=== PATIENT | female | born 1975 | race Caucasian/White ===

== ENCOUNTER 2020-09-25 17:45 | Emergency (ER) | payer SELFPAY ==
[2020-09-25] MEDS ORDERED: NALOXONE HCL 0.4 MG/ML VIAL ONE ×2 (17:50→17:58)
[2020-09-25] MEDS ORDERED: SODIUM CHLORIDE 0.9% 500 ML INFUS.BAG IV ONE ×2 (17:54→18:04)
[2020-09-25] MEDS ORDERED: methylPREDNISolone NA SUCC 125 MG/2 ML VIAL ONE (17:54)
[2020-09-25] MEDS ORDERED: MAGNESIUM 1GM/D5W - 1 GM/100 ML IVPB IVPB ONE ×2 (17:54→18:20)
[2020-09-25] MEDS ORDERED: methylPREDNISolone NA SUCC 125 MG/2 ML VIAL IVPUSH ONE (17:55)
[2020-09-25] MEDS ORDERED: NOREPINEPHRINE BITARTRATE 4 MG/4 ML ML IV ONE (18:02)
[2020-09-25] MEDS ORDERED: NALOXONE HCL 0.4 MG/ML VIAL IVPUSH ONE (18:05)
[2020-09-25] MEDS ORDERED: NOREPINEPHRINE NS PREMIX 8,000 MCG/500 ML BAG IVPB SCH (18:15)
[2020-09-25 18:23] VITALS: BMI 24.7
[2020-09-25] MEDS ORDERED: EPINEPHrine/PF 1 MG/1 ML (1:1,000) AMPULE IV ONE (18:30)
[2020-09-25] MEDS ORDERED: MAGNESIUM SULF 50% (8.12 MEQ/2 ML-1 GM VIAL) IVPB ONE (18:31)
[2020-09-25 18:34] LABS: BASO % 0.3 % (0-2.0); EOS % 1.9 % (0-4.5); HEMATOCRIT 36.7 % (32.4-45.2); HEMOGLOBIN 12.2 GM/dL (10.7-15.3); LYMPH % 32.5 % (8-40); MCH 32.5 pg (25.7-33.7); MCHC 33.4 g/dl (32.0-36.0); MEAN CELL VOLUME 97.5 fl (80-96); MEAN PLT VOLUME 8.2 fl (7.5-11.1); NEUT % 55.3 % (42.8-82.8); PLATELET COUNT 387 K/MM3 (134-434); RBC 3.76 M/mm3 (3.60-5.2); RDW 14.9 % (11.6-15.6); WHITE BLOOD COUNT 9.1 K/mm3 (4.0-10.0)
[2020-09-25 18:52] LABS: CHLORIDE 109 mmol/L (98-107); SODIUM 143 mmol/L (136-145)
[2020-09-25 18:54] LABS: CALCIUM 7.5 mg/dL (8.5-10.1)
[2020-09-25 18:55] LABS: ALBUMIN 2.6 g/dl (3.4-5.0); ANION GAP 9 MMOL/L (8-16); BLOOD UREA NITROGEN 11.6 mg/dL (7-18); CO2 24 mmol/L (21-32); GLUCOSE,RANDOM 105 mg/dL (74-106); MAGNESIUM 1.9 mg/dL (1.8-2.4)
[2020-09-25 18:58] LABS: CREATININE 0.7 mg/dL (0.55-1.3); PHOSPHOROUS 2.6 mg/dL (2.5-4.9); SGOT/AST 47 U/L (15-37); SGPT/ALT 26 U/L (13-61)
[2020-09-25 18:59] LABS: BILIRUBIN,TOTAL 0.4 mg/dL (0.2-1)
[2020-09-25 19:00] LABS: TOT PROT 4.8 g/dl (6.4-8.2)
[2020-09-25 19:01] LABS: ALK PHOS 63 U/L (45-117)
[2020-09-25] MEDS ORDERED: POTASSIUM CHLORIDE ORAL LIQUID 20 MEQ/15 ML PO ONE (19:11)
[2020-09-25] MEDS ORDERED: POTASSIUM CHLORIDE ORAL LIQUID 20 MEQ/15 ML ONE (19:22)
[2020-09-25 20:18] LABS: EPI CELLS 31 /uL (0-25.1); HYALINE CASTS 8 /uL (0-3.1); URINE APPEARANCE CLEAR; URINE BACTERIA 23 /uL (0-1359); URINE BILIRUBIN NEGATIVE (NEGATIVE); URINE COLOR YELLOW; URINE GLUCOSE (UA) TRACE (NEGATIVE); URINE KETONE TRACE (NEGATIVE); URINE LEUK ESTERASE NEGATIVE (NEGATIVE); URINE NITRITE NEGATIVE (NEGATIVE); URINE PROTEIN 1+ (NEGATIVE); URINE RBC 47 /uL (0-23.9); URINE UROBILINOGEN 0.2 mg/dL (0.2-1.0); URINE WBC 6 /uL (0-25.8)
[2020-09-25 20:40] LABS: URINE BARBITURATES NEGATIVE ng/ml (CUTOFF=200)
[2020-09-25 20:41] LABS: METHADONE, UR NEGATIVE ng/ml (CUTOFF=300); OPIATES, URI NEGATIVE ng/ml (CUTOFF=300); PHENCYCLIDINE,URINE NEGATIVE ng/ml (CUTOFF=25)
[2020-09-25 20:42] LABS: URINE AMPHETAMINES NEGATIVE ng/ml (CUTOFF=500)
[2020-09-25 20:50] LABS: COCAINE, UR POSITIVE ng/ml (CUTOFF=300); URINE BENZODIAZEPINES POSITIVE ng/ml (CUTOFF=200)
[2020-09-25] MEDS ORDERED: LORazepam 2 MG/ML SDV VIAL IVPUSH ONE (21:18)
[2020-09-25] MEDS ORDERED: LORazepam 2 MG/ML SDV VIAL ONE (21:21)
[2020-09-25] MEDS ORDERED: EPINEPHrine 1:1,000 1 MG/1 ML - 30ML VIAL (INJECTION) SQ ONE ×2 (22:05→22:59)
[2020-09-25] MEDS ORDERED: EPINEPHrine/PF 1 MG/1 ML (1:1,000) AMPULE ONE ×2 (22:09→23:04)
[2020-09-26 00:14] VITALS: TEMP 97.6
[2020-09-26] MEDS ORDERED: HEPARIN NA (PORCINE) 5,000 UNITS/ML 1ML VIAL IVPUSH PRN ×3 (00:17)
[2020-09-26] MEDS ORDERED: HEPARIN INFUSION - 25,000 UNITS/500 ML INFUS.BAG IVPB SCH (00:30)
[2020-09-26 01:02] LABS: INR 1.1 (0.83-1.09); PROTHROMBIN TIME (PATIENT) 13.3 SEC (9.7-13.0)
[2020-09-26 01:04] LABS: ACTIVATED PTT 21.9 SECONDS (25.2-36.5); CALCIUM 7.7 mg/dL (8.5-10.1)
[2020-09-26] MEDS ORDERED: HEPARIN INFUSION - 25,000 UNITS/500 ML INFUS.BAG IVPB ONE (01:04)
[2020-09-26] MEDS ORDERED: HEPARIN NA (PORCINE) 5,000 UNITS/ML 1ML VIAL ONE (01:04)
[2020-09-26 01:05] LABS: BLOOD UREA NITROGEN 11.5 mg/dL (7-18)
[2020-09-26 01:08] LABS: CREATININE 0.8 mg/dL (0.55-1.3)
[2020-09-26 01:43] VITALS: BP 153/85; PULSE 86
== END 2020-09-26 01:43 | disposition short-term general hospital (02) ==
LOC: JER 17:45
PROC: 3E033GC Introduction of Other Therapeutic Substance into Peripheral Vein, Percutaneous Approach (ICD-10-PCS; principal; 2020-09-25)
PROC: 3E033GC Introduction of Other Therapeutic Substance into Peripheral Vein, Percutaneous Approach (ICD-10-PCS; 2020-09-25)
PROC: 3E033GC Introduction of Other Therapeutic Substance into Peripheral Vein, Percutaneous Approach (ICD-10-PCS; 2020-09-25)
PROC: 3E033GC Introduction of Other Therapeutic Substance into Peripheral Vein, Percutaneous Approach (ICD-10-PCS; 2020-09-25)
PROC: 3E033GC Introduction of Other Therapeutic Substance into Peripheral Vein, Percutaneous Approach (ICD-10-PCS; 2020-09-25)
PROC: 3E033GC Introduction of Other Therapeutic Substance into Peripheral Vein, Percutaneous Approach (ICD-10-PCS; 2020-09-25)
PROC: 3E033GC Introduction of Other Therapeutic Substance into Peripheral Vein, Percutaneous Approach (ICD-10-PCS; 2020-09-25)
PROC: 3E033NZ Introduction of Analgesics, Hypnotics, Sedatives into Peripheral Vein, Percutaneous Approach (ICD-10-PCS; 2020-09-25)
PROC: 3E033GC Introduction of Other Therapeutic Substance into Peripheral Vein, Percutaneous Approach (ICD-10-PCS; 2020-09-25)
PROC: 3E033GC Introduction of Other Therapeutic Substance into Peripheral Vein, Percutaneous Approach (ICD-10-PCS; 2020-09-25)
PROC: 3E033GC Introduction of Other Therapeutic Substance into Peripheral Vein, Percutaneous Approach (ICD-10-PCS; 2020-09-25)
PROC: 3E033GC Introduction of Other Therapeutic Substance into Peripheral Vein, Percutaneous Approach (ICD-10-PCS; 2020-09-25)
DX: T78.2XXA Anaphylactic shock, unspecified, initial encounter (principal); F10.10 Alcohol abuse, uncomplicated; N28.0 Ischemia and infarction of kidney
CPT/HCPCS: 36415; 71045-TC-FY; 74177-TC; 80048; 80053; 80162; 80164; 80307; 81003; 82550; 82553; 82962; 83690; 83735; 84100; 84484; 84703; 85025; 85610; 85730; 87086; 93005; 93010; 99291; C9803; J1644; U0003; U0005

== ENCOUNTER 2021-07-20 18:37 | Inpatient (IN) | payer OTHER ==
[2021-07-20] MEDS ORDERED: LOPERAMIDE HCL 2 MG CAPSULE PO PRN (20:04)
[2021-07-20] MEDS ORDERED: MENTHOL/PHENOL 1 EACH UD MM PRN (20:04)
[2021-07-20] MEDS ORDERED: ACETAMINOPHEN 325 MG TABLET (FP) PO PRN (20:04)
[2021-07-20] MEDS ORDERED: ONDANSETRON *ODT* 4 MG TABLET SL PRN (20:04)
[2021-07-20] MEDS ORDERED: BISMUTH SUBSALICYLATE 524 MG/30 ML PO PRN (20:04)
[2021-07-20] MEDS ORDERED: MAGNESIUM CITRATE 300 ML BOTTLE PO PRN (20:04)
[2021-07-20] MEDS ORDERED: MAG HYDROX/AL HYDROX/SIMETH 30 ML UNIT-DOSE CUP PO PRN (20:04)
[2021-07-20] MEDS ORDERED: MAGNESIUM HYDROX 2400MG/30ML ORAL SUSPENSION 30 ML CUP PO PRN (20:04)
[2021-07-20] MEDS ORDERED: diazePAM 5 MG TABLET PO PRN (20:48)
[2021-07-21] MEDS ORDERED: ONDANSETRON *ODT* 4 MG TABLET ONE (00:59)
[2021-07-21 01:56] VITALS: BMI 21.7
[2021-07-21] MEDS ORDERED: METHOCARBAMOL 500 MG TABLET ONE (02:03)
[2021-07-21] MEDS ORDERED: diazePAM 5 MG TABLET ONE ×2 (02:03→11:14)
[2021-07-21] MEDS ORDERED: hydrOXYzine PAMOATE 25 MG CAPSULE (FP) PO ONE (02:04)
[2021-07-21] MEDS: MELATONIN 5 MG TABLETS PO PRN ×2 (02:05→22:24)
[2021-07-21] MEDS: METHOCARBAMOL 500 MG TABLET PO PRN ×3 (02:06→22:23)
[2021-07-21] MEDS: hydrOXYzine PAMOATE 25 MG CAPSULE (FP) PO PRN ×3 (02:06→17:21)
[2021-07-21] MEDS: THIAMINE HCL 100 MG TABLET (FP) PO SCH ×2 (06:50→22:23)
[2021-07-21] MEDS: PRENATAL VITAMINS W/ FOLIC ACID TABLET (FP) PO SCH (10:30)
[2021-07-21] MEDS: diazePAM 5 MG TABLET PO SCH ×3 (11:21→22:23)
[2021-07-21 14:37] LABS: HEMATOCRIT 41.2 % (32.4-45.2); HEMOGLOBIN 13.9 GM/dL (10.7-15.3); MCHC 33.7 g/dl (32.0-36.0); MEAN PLT VOLUME 7.9 fl (7.5-11.1); PLATELET COUNT 336 10^3/uL (134-434); RDW 13.9 % (11.6-15.6); WHITE BLOOD COUNT 7.1 K/mm3 (4.0-10.0)
[2021-07-21 14:47] LABS: ALBUMIN 3.6 g/dl (3.4-5.0); BLOOD UREA NITROGEN 20.2 mg/dL (7-18); CALCIUM 9.4 mg/dL (8.5-10.1)
[2021-07-21 14:51] LABS: CREATININE 0.7 mg/dL (0.55-1.3)
[2021-07-21 14:53] LABS: BILIRUBIN,TOTAL 0.3 mg/dL (0.2-1); TOT PROT 6.7 g/dl (6.4-8.2)
[2021-07-21] MEDS: IBUPROFEN 400 MG TABLET (FP) PO PRN (14:53)
[2021-07-21] MEDS: NICOTINE 10 MG CARTRIDGE (INHALER) IH PRN (15:18)
[2021-07-21] MEDS: traZODone HCL 50 MG TABLET (FP) PO SCH (22:23)
[2021-07-22] MEDS: diazePAM 5 MG TABLET PO SCH ×4 (06:42→22:08)
[2021-07-22] MEDS: METHOCARBAMOL 500 MG TABLET PO PRN ×2 (10:09→17:47)
[2021-07-22] MEDS: hydrOXYzine PAMOATE 25 MG CAPSULE (FP) PO PRN ×3 (10:09→22:11)
[2021-07-22] MEDS: ESCITALOPRAM OXALATE 10 MG TABLET PO SCH (10:09)
[2021-07-22] MEDS: PRENATAL VITAMINS W/ FOLIC ACID TABLET (FP) PO SCH (10:09)
[2021-07-22] MEDS: NICOTINE 10 MG CARTRIDGE (INHALER) IH PRN (10:54)
[2021-07-22] MEDS: diazePAM 5 MG TABLET PO PRN (13:46)
[2021-07-22] MEDS: THIAMINE HCL 100 MG TABLET (FP) PO SCH (22:08)
[2021-07-22] MEDS: traZODone HCL 50 MG TABLET (FP) PO SCH (22:08)
[2021-07-22] MEDS: ACETAMINOPHEN 325 MG TABLET (FP) PO PRN (22:09)
[2021-07-23] MEDS: diazePAM 5 MG TABLET PO SCH ×3 (05:44→22:09)
[2021-07-23] MEDS: PRENATAL VITAMINS W/ FOLIC ACID TABLET (FP) PO SCH (10:10)
[2021-07-23] MEDS: ESCITALOPRAM OXALATE 10 MG TABLET PO SCH (10:11)
[2021-07-23] MEDS: hydrOXYzine PAMOATE 25 MG CAPSULE (FP) PO PRN ×4 (10:11→22:09)
[2021-07-23] MEDS: METHOCARBAMOL 500 MG TABLET PO PRN (10:11)
[2021-07-23] MEDS: diazePAM 5 MG TABLET PO PRN ×2 (10:12→17:38)
[2021-07-23] MEDS: NICOTINE 10 MG CARTRIDGE (INHALER) IH PRN (13:37)
[2021-07-23] MEDS: MELATONIN 5 MG TABLETS PO PRN (22:08)
[2021-07-23] MEDS: traZODone HCL 50 MG TABLET (FP) PO SCH (22:09)
[2021-07-23] MEDS: THIAMINE HCL 100 MG TABLET (FP) PO SCH (22:09)
[2021-07-24 00:06] LABS: SARS-CoV-2 NAA Not Detected (Not Detected)
[2021-07-24] MEDS: diazePAM 5 MG TABLET PO SCH ×2 (05:40→17:54)
[2021-07-24] MEDS: IBUPROFEN 400 MG TABLET (FP) PO PRN (10:08)
[2021-07-24] MEDS: ESCITALOPRAM OXALATE 10 MG TABLET PO SCH (10:09)
[2021-07-24] MEDS: METHOCARBAMOL 500 MG TABLET PO PRN (10:09)
[2021-07-24] MEDS: hydrOXYzine PAMOATE 25 MG CAPSULE (FP) PO PRN ×3 (10:09→22:09)
[2021-07-24] MEDS: NICOTINE 10 MG CARTRIDGE (INHALER) IH PRN ×2 (10:10→17:56)
[2021-07-24] MEDS: PRENATAL VITAMINS W/ FOLIC ACID TABLET (FP) PO SCH (10:10)
[2021-07-24] MEDS ORDERED: diazePAM 5 MG TABLET PO ONE (12:23)
[2021-07-24] MEDS ORDERED: METHOCARBAMOL 750 MG TAB PO ONE (12:30)
[2021-07-24] MEDS: MELATONIN 5 MG TABLETS PO PRN (22:08)
[2021-07-24] MEDS: THIAMINE HCL 100 MG TABLET (FP) PO SCH (22:09)
[2021-07-24] MEDS: traZODone HCL 50 MG TABLET (FP) PO SCH (22:09)
[2021-07-25] MEDS ORDERED: diazePAM 5 MG TABLET PO ONE (06:00)
[2021-07-25] MEDS: PRENATAL VITAMINS W/ FOLIC ACID TABLET (FP) PO SCH (10:09)
[2021-07-25] MEDS: ESCITALOPRAM OXALATE 10 MG TABLET PO SCH (10:09)
[2021-07-25] MEDS: NICOTINE 10 MG CARTRIDGE (INHALER) IH PRN (10:10)
[2021-07-25] MEDS: ACETAMINOPHEN 325 MG TABLET (FP) PO PRN (11:06)
[2021-07-25] MEDS: hydrOXYzine PAMOATE 25 MG CAPSULE (FP) PO PRN (12:31)
[2021-07-25 13:39] VITALS: BP 125/74; PULSE 71; TEMP 97.3
== END 2021-07-25 15:01 | disposition home or self-care (01) | DRG 774 ==
LOC: YASAS 18:37 → Y6N 07-21 13:07
PROVIDERS: ADMIT Allergy & Immunology; ATTEND Allergy & Immunology
PROC: HZ2ZZZZ Detoxification Services for Substance Abuse Treatment (ICD-10-PCS; principal; 2021-07-21)
DX: F10.230 Alcohol dependence with withdrawal, uncomplicated (principal); F13.230 Sedative, hypnotic or anxiolytic dependence with withdrawal, uncomplicated; F14.20 Cocaine dependence, uncomplicated; F12.20 Cannabis dependence, uncomplicated; F17.210 Nicotine dependence, cigarettes, uncomplicated; F19.282 Other psychoactive substance dependence with psychoactive substance-induced sleep disorder; F19.280 Other psychoactive substance dependence with psychoactive substance-induced anxiety disorder; F19.24 Other psychoactive substance dependence with psychoactive substance-induced mood disorder; F31.81 Bipolar II disorder; F41.8 Other specified anxiety disorders; F32.A Depression, unspecified; Z88.0 Allergy status to penicillin; Z91.018 Allergy to other foods
CPT/HCPCS: 36415; 80053; 81025; 85027; 86780; C9803-CS; Q0162; U0003; U0005

== ENCOUNTER 2021-08-07 15:46 | Inpatient (IN) | payer OTHER ==
[2021-08-07 17:23] VITALS: BMI 22.6
[2021-08-07] MEDS ORDERED: LOPERAMIDE HCL 2 MG CAPSULE PO PRN (19:42)
[2021-08-07] MEDS ORDERED: DICYCLOMINE HCL 10 MG CAPSULE PO PRN (19:42)
[2021-08-07] MEDS ORDERED: MAG HYDROX/AL HYDROX/SIMETH 30 ML UNIT-DOSE CUP PO PRN (19:42)
[2021-08-07] MEDS ORDERED: BISMUTH SUBSALICYLATE 524 MG/30 ML PO PRN (19:42)
[2021-08-07] MEDS ORDERED: ACETAMINOPHEN 325 MG TABLET (FP) PO PRN (19:42)
[2021-08-07] MEDS ORDERED: MELATONIN 5 MG TABLETS PO PRN (19:42)
[2021-08-07] MEDS ORDERED: ONDANSETRON *ODT* 4 MG TABLET SL PRN (19:42)
[2021-08-07] MEDS ORDERED: MAGNESIUM CITRATE 300 ML BOTTLE PO PRN (19:42)
[2021-08-07] MEDS ORDERED: MENTHOL/PHENOL 1 EACH UD MM PRN (19:42)
[2021-08-07] MEDS ORDERED: MAGNESIUM HYDROX 2400MG/30ML ORAL SUSPENSION 30 ML CUP PO PRN (19:42)
[2021-08-07] MEDS ORDERED: chlordiazePOXIDE HCL 25 MG CAPSULE PO PRN (19:44)
[2021-08-08] MEDS: chlordiazePOXIDE HCL 25 MG CAPSULE PO SCH ×5 (01:36→22:07)
[2021-08-08] MEDS: THIAMINE HCL 100 MG TABLET (FP) PO SCH ×2 (01:36→22:07)
[2021-08-08] MEDS: METHOCARBAMOL 500 MG TABLET PO PRN ×2 (06:16→20:26)
[2021-08-08] MEDS: PRENATAL VITAMINS W/ FOLIC ACID TABLET (FP) PO SCH (10:39)
[2021-08-08] MEDS: ACETAMINOPHEN 325 MG TABLET (FP) PO PRN (10:41)
[2021-08-08] MEDS: LISINOPRIL 10 MG TABLET PO SCH ×2 (11:44→22:07)
[2021-08-08] MEDS: ESCITALOPRAM OXALATE 10 MG TABLET PO SCH (11:44)
[2021-08-08] MEDS: IBUPROFEN 400 MG TABLET (FP) PO PRN (17:42)
[2021-08-08] MEDS: traZODone HCL 50 MG TABLET (FP) PO SCH (22:07)
[2021-08-09] MEDS: chlordiazePOXIDE HCL 25 MG CAPSULE PO SCH ×4 (05:31→22:03)
[2021-08-09] MEDS: METHOCARBAMOL 500 MG TABLET PO PRN ×3 (05:33→18:13)
[2021-08-09] MEDS: PRENATAL VITAMINS W/ FOLIC ACID TABLET (FP) PO SCH (10:23)
[2021-08-09] MEDS: LISINOPRIL 10 MG TABLET PO SCH ×2 (10:23→22:04)
[2021-08-09] MEDS: ESCITALOPRAM OXALATE 10 MG TABLET PO SCH (10:23)
[2021-08-09] MEDS: ACETAMINOPHEN 325 MG TABLET (FP) PO PRN ×2 (10:27→22:05)
[2021-08-09] MEDS: NICOTINE 10 MG CARTRIDGE (INHALER) IH PRN (10:56)
[2021-08-09] MEDS: hydrOXYzine PAMOATE 25 MG CAPSULE (FP) PO PRN ×3 (15:22→22:03)
[2021-08-09] MEDS: traZODone HCL 50 MG TABLET (FP) PO SCH (22:03)
[2021-08-09] MEDS: THIAMINE HCL 100 MG TABLET (FP) PO SCH (22:03)
[2021-08-10] MEDS ORDERED: chlordiazePOXIDE HCL 10 MG CAPSULE PO PRN
[2021-08-10] MEDS: hydrOXYzine PAMOATE 25 MG CAPSULE (FP) PO PRN ×3 (05:29→22:08)
[2021-08-10] MEDS: METHOCARBAMOL 500 MG TABLET PO PRN ×2 (05:29→18:01)
[2021-08-10] MEDS: chlordiazePOXIDE HCL 10 MG CAPSULE PO SCH ×4 (05:29→22:09)
[2021-08-10] MEDS: ACETAMINOPHEN 325 MG TABLET (FP) PO PRN (10:05)
[2021-08-10] MEDS: ESCITALOPRAM OXALATE 10 MG TABLET PO SCH (10:05)
[2021-08-10] MEDS: PRENATAL VITAMINS W/ FOLIC ACID TABLET (FP) PO SCH (10:05)
[2021-08-10] MEDS: LISINOPRIL 10 MG TABLET PO SCH ×2 (10:07→22:08)
[2021-08-10] MEDS: NICOTINE 10 MG CARTRIDGE (INHALER) IH PRN (10:55)
[2021-08-10] MEDS ORDERED: ESCITALOPRAM OXALATE 10 MG TABLET PO ONE (12:12)
[2021-08-10] MEDS: THIAMINE HCL 100 MG TABLET (FP) PO SCH (22:08)
[2021-08-10] MEDS: traZODone HCL 50 MG TABLET (FP) PO SCH (22:08)
[2021-08-10] MEDS: MELATONIN 5 MG TABLETS PO SCH (22:08)
[2021-08-11] MEDS: METHOCARBAMOL 500 MG TABLET PO PRN ×2 (05:47→20:07)
[2021-08-11] MEDS: chlordiazePOXIDE HCL 10 MG CAPSULE PO SCH ×2 (05:47→17:40)
[2021-08-11] MEDS: IBUPROFEN 400 MG TABLET (FP) PO PRN (08:33)
[2021-08-11] MEDS: hydrOXYzine PAMOATE 25 MG CAPSULE (FP) PO PRN ×4 (08:33→22:15)
[2021-08-11] MEDS: LISINOPRIL 10 MG TABLET PO SCH ×3 (10:20→23:28)
[2021-08-11] MEDS: PRENATAL VITAMINS W/ FOLIC ACID TABLET (FP) PO SCH (10:20)
[2021-08-11] MEDS: ESCITALOPRAM OXALATE 10 MG TABLET PO SCH (10:21)
[2021-08-11] MEDS: NICOTINE 10 MG CARTRIDGE (INHALER) IH PRN (10:52)
[2021-08-11] MEDS ORDERED: METHOCARBAMOL 500 MG TABLET PO SCH (12:45)
[2021-08-11] MEDS ORDERED: METHOCARBAMOL 500 MG TABLET PO ONE (13:41)
[2021-08-11] MEDS: traZODone HCL 50 MG TABLET (FP) PO SCH (22:15)
[2021-08-11] MEDS: MELATONIN 5 MG TABLETS PO SCH (22:15)
[2021-08-11] MEDS: THIAMINE HCL 100 MG TABLET (FP) PO SCH (22:15)
[2021-08-12] MEDS ORDERED: chlordiazePOXIDE HCL 10 MG CAPSULE PO ONE (05:00)
[2021-08-12] MEDS: METHOCARBAMOL 500 MG TABLET PO PRN (06:14)
[2021-08-12 09:14] VITALS: BP 137/68; PULSE 68; TEMP 96.6
[2021-08-12] MEDS: ESCITALOPRAM OXALATE 10 MG TABLET PO SCH (10:11)
[2021-08-12] MEDS: LISINOPRIL 10 MG TABLET PO SCH (10:11)
[2021-08-12] MEDS: PRENATAL VITAMINS W/ FOLIC ACID TABLET (FP) PO SCH (10:12)
[2021-08-12 13:27] LABS: CALCIUM 8.6 mg/dL (8.5-10.1)
[2021-08-12 13:29] LABS: ALBUMIN 3.1 g/dl (3.4-5.0); BLOOD UREA NITROGEN 15.5 mg/dL (7-18)
[2021-08-12 13:31] LABS: CREATININE 0.7 mg/dL (0.55-1.3)
[2021-08-12 13:34] LABS: BASO % 0.4 % (0-2.0); BILIRUBIN,TOTAL 0.3 mg/dL (0.2-1); EOS % 2.5 % (0-4.5); HEMATOCRIT 39.8 % (32.4-45.2); MCH 32.6 pg (25.7-33.7); MCHC 32.7 g/dl (32.0-36.0); MEAN CELL VOLUME 99.7 fl (80-96); MEAN PLT VOLUME 8.4 fl (7.5-11.1); MONO % 10.8 % (3.8-10.2); NEUT % 54.3 % (42.8-82.8); PLATELET COUNT 303 10^3/uL (134-434); RBC 3.99 M/mm3 (3.60-5.2); RDW 13.7 % (11.6-15.6); WHITE BLOOD COUNT 6.2 K/mm3 (4.0-10.0)
== END 2021-08-12 10:52 | disposition home or self-care (01) | DRG 774 ==
LOC: YASAS 15:46 → Y6N 21:10
PROVIDERS: ADMIT Allergy & Immunology; ATTEND Allergy & Immunology
PROC: HZ2ZZZZ Detoxification Services for Substance Abuse Treatment (ICD-10-PCS; principal; 2021-08-07)
DX: F10.230 Alcohol dependence with withdrawal, uncomplicated (principal); F14.20 Cocaine dependence, uncomplicated; F12.20 Cannabis dependence, uncomplicated; F17.210 Nicotine dependence, cigarettes, uncomplicated; F31.81 Bipolar II disorder; F19.280 Other psychoactive substance dependence with psychoactive substance-induced anxiety disorder; F19.282 Other psychoactive substance dependence with psychoactive substance-induced sleep disorder; F19.24 Other psychoactive substance dependence with psychoactive substance-induced mood disorder; Z56.0 Unemployment, unspecified; Z88.0 Allergy status to penicillin
CPT/HCPCS: 36415; 73130-TC-RT-FY; 80048; 80053; 85025; 86780; 87811; C9803-CS; U0003; U0005

== ENCOUNTER 2021-12-05 15:45 | Inpatient (IN) | payer OTHER ==
[2021-12-05 17:33] VITALS: BMI 25.6
[2021-12-05] MEDS ORDERED: MAG HYDROX/AL HYDROX/SIMETH 30 ML UNIT-DOSE CUP PO PRN (17:47)
[2021-12-05] MEDS ORDERED: MAGNESIUM CITRATE 300 ML BOTTLE PO PRN (17:47)
[2021-12-05] MEDS ORDERED: LOPERAMIDE HCL 2 MG CAPSULE PO PRN (17:47)
[2021-12-05] MEDS ORDERED: chlordiazePOXIDE HCL 25 MG CAPSULE PO PRN (17:47)
[2021-12-05] MEDS ORDERED: IBUPROFEN 600 MG TABLET (FP) PO PRN (17:47)
[2021-12-05] MEDS ORDERED: ACETAMINOPHEN 325 MG TABLET (FP) PO PRN ×2 (17:47)
[2021-12-05] MEDS ORDERED: BISMUTH SUBSALICYLATE 524 MG/30 ML PO PRN (17:47)
[2021-12-05] MEDS ORDERED: DICYCLOMINE HCL 10 MG CAPSULE PO PRN (17:47)
[2021-12-05] MEDS ORDERED: IBUPROFEN 400 MG TABLET (FP) PO PRN (17:47)
[2021-12-05] MEDS ORDERED: BENZOCAINE/MENTHOL (CHLORASEPTIC ) LOZENGE MM PRN (17:47)
[2021-12-05] MEDS ORDERED: NICOTINE 10 MG CARTRIDGE (INHALER) IH PRN (17:47)
[2021-12-05] MEDS ORDERED: ONDANSETRON *ODT* 4 MG TABLET SL PRN (17:47)
[2021-12-05] MEDS ORDERED: MAGNESIUM HYDROX 2400MG/30ML ORAL SUSPENSION 30 ML CUP PO PRN (17:47)
[2021-12-05] MEDS ORDERED: chlordiazePOXIDE HCL 25 MG CAPSULE PO ONE (17:47)
[2021-12-05] MEDS: METHOCARBAMOL 500 MG TABLET PO PRN (19:35)
[2021-12-05] MEDS: hydrOXYzine PAMOATE 25 MG CAPSULE (FP) PO SCH ×2 (19:35→22:06)
[2021-12-05] MEDS: PRENATAL VITAMINS W/ FOLIC ACID TABLET (FP) PO SCH (19:42)
[2021-12-05] MEDS ORDERED: MELATONIN 5 MG TABLETS PO SCH (22:00)
[2021-12-05] MEDS: THIAMINE HCL 100 MG TABLET (FP) PO SCH (22:06)
[2021-12-05] MEDS: chlordiazePOXIDE HCL 25 MG CAPSULE PO SCH (22:06)
[2021-12-06] MEDS: hydrOXYzine PAMOATE 25 MG CAPSULE (FP) PO SCH ×5 (05:40→22:16)
[2021-12-06] MEDS: chlordiazePOXIDE HCL 25 MG CAPSULE PO SCH ×4 (05:40→22:15)
[2021-12-06] MEDS: METHOCARBAMOL 500 MG TABLET PO PRN (10:55)
[2021-12-06] MEDS: PRENATAL VITAMINS W/ FOLIC ACID TABLET (FP) PO SCH (10:55)
[2021-12-06 11:14] LABS: MCH 33.2 pg (25.7-33.7); MCHC 34.1 g/dl (32.0-36.0); MEAN CELL VOLUME 97.5 fl (80-96); MEAN PLT VOLUME 7.9 fl (7.5-11.1); PLATELET COUNT 288 10^3/uL (134-434); RBC 4.51 M/mm3 (3.60-5.2); RDW 13.5 % (11.6-15.6); WHITE BLOOD COUNT 5.8 K/mm3 (4.0-10.0)
[2021-12-06 11:23] LABS: CALCIUM 9.3 mg/dL (8.5-10.1)
[2021-12-06 11:24] LABS: ALBUMIN 3.7 g/dl (3.4-5.0); BLOOD UREA NITROGEN 14.8 mg/dL (7-18)
[2021-12-06 11:27] LABS: CREATININE 0.7 mg/dL (0.55-1.3)
[2021-12-06 11:29] LABS: BILIRUBIN,TOTAL 0.6 mg/dL (0.2-1)
[2021-12-06] MEDS: SERTRALINE HCL 50 MG TABLET (FP) PO SCH (15:56)
[2021-12-06] MEDS: THIAMINE HCL 100 MG TABLET (FP) PO SCH (22:14)
[2021-12-06] MEDS: GABAPENTIN 100 MG CAPSULE PO SCH (22:15)
[2021-12-06] MEDS: traZODone HCL 100 MG TABLET (FP) PO SCH (22:15)
[2021-12-07] MEDS: METHOCARBAMOL 500 MG TABLET PO PRN ×3 (05:13→18:43)
[2021-12-07] MEDS: GABAPENTIN 100 MG CAPSULE PO SCH ×3 (05:13→22:34)
[2021-12-07] MEDS: hydrOXYzine PAMOATE 25 MG CAPSULE (FP) PO SCH ×5 (05:13→22:34)
[2021-12-07] MEDS: chlordiazePOXIDE HCL 25 MG CAPSULE PO SCH ×4 (05:13→22:35)
[2021-12-07] MEDS: PRENATAL VITAMINS W/ FOLIC ACID TABLET (FP) PO SCH (09:59)
[2021-12-07] MEDS: SERTRALINE HCL 50 MG TABLET (FP) PO SCH (09:59)
[2021-12-07] MEDS: traZODone HCL 100 MG TABLET (FP) PO SCH (22:34)
[2021-12-07] MEDS: THIAMINE HCL 100 MG TABLET (FP) PO SCH (22:34)
[2021-12-08] MEDS ORDERED: chlordiazePOXIDE HCL 10 MG CAPSULE PO PRN
[2021-12-08] MEDS: chlordiazePOXIDE HCL 10 MG CAPSULE PO SCH ×2 (06:09→10:45)
[2021-12-08] MEDS: GABAPENTIN 100 MG CAPSULE PO SCH (06:09)
[2021-12-08] MEDS: hydrOXYzine PAMOATE 25 MG CAPSULE (FP) PO SCH ×2 (06:09→10:44)
[2021-12-08] MEDS: METHOCARBAMOL 500 MG TABLET PO PRN (06:12)
[2021-12-08] MEDS: PRENATAL VITAMINS W/ FOLIC ACID TABLET (FP) PO SCH (10:44)
[2021-12-08] MEDS: SERTRALINE HCL 50 MG TABLET (FP) PO SCH (10:46)
[2021-12-08 13:29] VITALS: BP 133/72; PULSE 82; RESP 18; TEMP 98.8
[2021-12-09] MEDS ORDERED: chlordiazePOXIDE HCL 10 MG CAPSULE PO SCH (05:00)
[2021-12-10] MEDS ORDERED: chlordiazePOXIDE HCL 10 MG CAPSULE PO ONE (05:00)
== END 2021-12-08 13:30 | disposition home or self-care (01) | DRG 774 ==
LOC: YASAS 15:45 → Y6N 18:17
PROVIDERS: ADMIT Allergy & Immunology; ATTEND Surgery
PROC: HZ2ZZZZ Detoxification Services for Substance Abuse Treatment (ICD-10-PCS; principal; 2021-12-05)
DX: F10.230 Alcohol dependence with withdrawal, uncomplicated (principal); F13.230 Sedative, hypnotic or anxiolytic dependence with withdrawal, uncomplicated; F14.20 Cocaine dependence, uncomplicated; F12.20 Cannabis dependence, uncomplicated; F17.210 Nicotine dependence, cigarettes, uncomplicated; F41.9 Anxiety disorder, unspecified; F32.A Depression, unspecified; F19.24 Other psychoactive substance dependence with psychoactive substance-induced mood disorder; F19.282 Other psychoactive substance dependence with psychoactive substance-induced sleep disorder; F19.280 Other psychoactive substance dependence with psychoactive substance-induced anxiety disorder; F31.89 Other bipolar disorder; Z88.0 Allergy status to penicillin; Z56.0 Unemployment, unspecified
CPT/HCPCS: 36415; 80053; 81025; 85027; 86780; C9803-CS; U0003; U0005

== ENCOUNTER 2022-04-10 13:04 | Inpatient (IN) | payer OTHER ==
[2022-04-10 14:18] VITALS: BMI 27.6
[2022-04-10] MEDS ORDERED: DICYCLOMINE HCL 10 MG CAPSULE PO PRN (16:21)
[2022-04-10] MEDS ORDERED: ACETAMINOPHEN 325 MG TABLET (FP) PO PRN ×2 (16:21)
[2022-04-10] MEDS ORDERED: POLYETHYLENE GLYCOL (HEALTHYLAX) 3350 17 GM PACKET PO PRN (16:21)
[2022-04-10] MEDS ORDERED: MAGNESIUM HYDROX 2400MG/30ML ORAL SUSPENSION 30 ML CUP PO PRN (16:21)
[2022-04-10] MEDS ORDERED: LOPERAMIDE HCL 2 MG CAPSULE PO PRN (16:21)
[2022-04-10] MEDS ORDERED: BENZOCAINE/MENTHOL (CHLORASEPTIC ) LOZENGE MM PRN (16:21)
[2022-04-10] MEDS ORDERED: ONDANSETRON *ODT* 4 MG TABLET SL PRN (16:21)
[2022-04-10] MEDS ORDERED: MAG HYDROX/AL HYDROX/SIMETH 30 ML UNIT-DOSE CUP PO PRN (16:21)
[2022-04-10] MEDS ORDERED: IBUPROFEN 400 MG TABLET (FP) PO PRN (16:21)
[2022-04-10] MEDS ORDERED: BISMUTH SUBSALICYLATE 524 MG/30 ML PO PRN (16:21)
[2022-04-10] MEDS ORDERED: NALOXONE HCL (KLOXXADO) 8 MG SPRAY NS PRN (16:21)
[2022-04-10] MEDS ORDERED: chlordiazePOXIDE HCL 25 MG CAPSULE PO PRN (16:29)
[2022-04-10] MEDS ORDERED: chlordiazePOXIDE HCL 25 MG CAPSULE ONE (17:18)
[2022-04-10] MEDS: chlordiazePOXIDE HCL 25 MG CAPSULE PO SCH ×2 (17:22→22:37)
[2022-04-10] MEDS: MELATONIN 5 MG TABLETS PO SCH (22:37)
[2022-04-10] MEDS: hydrOXYzine PAMOATE 25 MG CAPSULE (FP) PO PRN (22:37)
[2022-04-10] MEDS: METHOCARBAMOL 500 MG TABLET PO PRN (22:37)
[2022-04-10] MEDS: THIAMINE HCL 100 MG TABLET (FP) PO SCH (22:37)
[2022-04-11] MEDS: chlordiazePOXIDE HCL 25 MG CAPSULE PO SCH ×4 (05:30→22:21)
[2022-04-11] MEDS: METHOCARBAMOL 500 MG TABLET PO PRN ×3 (05:32→17:50)
[2022-04-11] MEDS: PRENATAL VITAMINS W/ FOLIC ACID TABLET (FP) PO SCH (10:11)
[2022-04-11] MEDS: NICOTINE 14 MG/24 HOURS TOPICAL PATCH TD SCH (10:11)
[2022-04-11] MEDS: NICOTINE 10 MG CARTRIDGE (INHALER) IH PRN (10:12)
[2022-04-11] MEDS: IBUPROFEN 600 MG TABLET (FP) PO PRN ×2 (12:42→21:06)
[2022-04-11] MEDS: hydrOXYzine PAMOATE 25 MG CAPSULE (FP) PO PRN ×2 (12:42→17:50)
[2022-04-11 15:07] LABS: ALBUMIN 3.4 g/dl (3.4-5.0); BLOOD UREA NITROGEN 13.7 mg/dL (7-18); CALCIUM 9.3 mg/dL (8.5-10.1)
[2022-04-11 15:11] LABS: CREATININE 0.6 mg/dL (0.55-1.3)
[2022-04-11 15:12] LABS: HEMATOCRIT 44.3 % (32.4-45.2); HEMOGLOBIN 14.5 GM/dL (10.7-15.3); MCH 32.9 pg (25.7-33.7); MCHC 32.7 g/dl (32.0-36.0); MEAN CELL VOLUME 100.5 fl (80-96); PLATELET COUNT 357 10^3/uL (134-434); RBC 4.41 M/mm3 (3.60-5.2); RDW 12.7 % (11.6-15.6); WHITE BLOOD COUNT 5.6 K/mm3 (4.0-10.0)
[2022-04-11 15:13] LABS: BILIRUBIN,TOTAL 0.5 mg/dL (0.2-1); TOT PROT 6.4 g/dl (6.4-8.2)
[2022-04-11] MEDS: MELATONIN 5 MG TABLETS PO SCH (22:20)
[2022-04-11] MEDS: THIAMINE HCL 100 MG TABLET (FP) PO SCH (22:21)
[2022-04-12] MEDS: METHOCARBAMOL 500 MG TABLET PO PRN ×3 (05:43→22:25)
[2022-04-12] MEDS: chlordiazePOXIDE HCL 25 MG CAPSULE PO SCH ×4 (05:45→22:24)
[2022-04-12] MEDS: PRENATAL VITAMINS W/ FOLIC ACID TABLET (FP) PO SCH (10:30)
[2022-04-12] MEDS: NICOTINE 14 MG/24 HOURS TOPICAL PATCH TD SCH (10:31)
[2022-04-12] MEDS: hydrOXYzine PAMOATE 25 MG CAPSULE (FP) PO PRN ×2 (18:01→22:25)
[2022-04-12] MEDS: MELATONIN 5 MG TABLETS PO SCH (22:24)
[2022-04-12] MEDS: THIAMINE HCL 100 MG TABLET (FP) PO SCH (22:24)
[2022-04-13] MEDS ORDERED: chlordiazePOXIDE HCL 10 MG CAPSULE PO PRN
[2022-04-13] MEDS: chlordiazePOXIDE HCL 10 MG CAPSULE PO SCH ×4 (06:17→22:28)
[2022-04-13] MEDS: METHOCARBAMOL 500 MG TABLET PO PRN ×3 (06:18→22:28)
[2022-04-13] MEDS: NICOTINE 14 MG/24 HOURS TOPICAL PATCH TD SCH (10:08)
[2022-04-13] MEDS: PRENATAL VITAMINS W/ FOLIC ACID TABLET (FP) PO SCH (10:08)
[2022-04-13] MEDS: hydrOXYzine PAMOATE 25 MG CAPSULE (FP) PO PRN (10:08)
[2022-04-13] MEDS: SERTRALINE HCL 25 MG TABLET (FP) PO SCH (10:09)
[2022-04-13] MEDS: IBUPROFEN 600 MG TABLET (FP) PO PRN (12:51)
[2022-04-13] MEDS: GABAPENTIN 100 MG CAPSULE PO SCH ×2 (13:08→22:28)
[2022-04-13] MEDS: traZODone HCL 100 MG TABLET (FP) PO SCH (22:28)
[2022-04-13] MEDS: THIAMINE HCL 100 MG TABLET (FP) PO SCH (22:28)
[2022-04-14] MEDS: GABAPENTIN 100 MG CAPSULE PO SCH ×3 (06:02→22:11)
[2022-04-14] MEDS: METHOCARBAMOL 500 MG TABLET PO PRN ×3 (06:02→23:04)
[2022-04-14] MEDS: chlordiazePOXIDE HCL 10 MG CAPSULE PO SCH ×2 (06:02→17:17)
[2022-04-14] MEDS: SERTRALINE HCL 25 MG TABLET (FP) PO SCH (10:51)
[2022-04-14] MEDS: PRENATAL VITAMINS W/ FOLIC ACID TABLET (FP) PO SCH (10:51)
[2022-04-14] MEDS: NICOTINE 14 MG/24 HOURS TOPICAL PATCH TD SCH (10:51)
[2022-04-14] MEDS: NICOTINE 10 MG CARTRIDGE (INHALER) IH PRN (10:51)
[2022-04-14] MEDS: hydrOXYzine PAMOATE 25 MG CAPSULE (FP) PO PRN ×2 (17:17→22:11)
[2022-04-14 19:26] VITALS: RESP 18
[2022-04-14] MEDS: traZODone HCL 100 MG TABLET (FP) PO SCH (22:11)
[2022-04-14] MEDS: THIAMINE HCL 100 MG TABLET (FP) PO SCH (22:11)
[2022-04-15] MEDS ORDERED: chlordiazePOXIDE HCL 10 MG CAPSULE PO ONE (05:00)
[2022-04-15] MEDS: GABAPENTIN 100 MG CAPSULE PO SCH (05:25)
[2022-04-15] MEDS: METHOCARBAMOL 500 MG TABLET PO PRN (05:26)
[2022-04-15] MEDS: PRENATAL VITAMINS W/ FOLIC ACID TABLET (FP) PO SCH (10:20)
[2022-04-15] MEDS: NICOTINE 14 MG/24 HOURS TOPICAL PATCH TD SCH (10:20)
[2022-04-15] MEDS: SERTRALINE HCL 25 MG TABLET (FP) PO SCH (10:20)
[2022-04-15 12:21] VITALS: BP 107/67; PULSE 73; TEMP 97.6
== END 2022-04-15 11:31 | disposition home or self-care (01) | DRG 774 ==
LOC: YASAS 13:04 → Y6N 17:29 → UNDOADMIN 17:29 → Y6N 18:37
PROVIDERS: ADMIT Allergy & Immunology; ATTEND Surgery
PROC: HZ2ZZZZ Detoxification Services for Substance Abuse Treatment (ICD-10-PCS; principal; 2022-04-10)
DX: F10.230 Alcohol dependence with withdrawal, uncomplicated (principal); F13.230 Sedative, hypnotic or anxiolytic dependence with withdrawal, uncomplicated; F14.20 Cocaine dependence, uncomplicated; F12.20 Cannabis dependence, uncomplicated; F17.210 Nicotine dependence, cigarettes, uncomplicated; F31.81 Bipolar II disorder; F19.282 Other psychoactive substance dependence with psychoactive substance-induced sleep disorder; F19.24 Other psychoactive substance dependence with psychoactive substance-induced mood disorder; F41.9 Anxiety disorder, unspecified; Z88.0 Allergy status to penicillin
CPT/HCPCS: 36415; 80053; 81025; 85027; 86780; 87811; C9803-CS; U0003; U0005

== ENCOUNTER 2022-12-05 20:53 | Inpatient (IN) | payer OTHER ==
[2022-12-05 21:22] VITALS: BMI 23.6
[2022-12-05] MEDS ORDERED: BISMUTH SUBSALICYLATE 524 MG/30 ML PO PRN (22:05)
[2022-12-05] MEDS ORDERED: DICYCLOMINE HCL 10 MG CAPSULE PO PRN (22:05)
[2022-12-05] MEDS ORDERED: ACETAMINOPHEN 325 MG TABLET (FP) PO PRN (22:05)
[2022-12-05] MEDS ORDERED: P-EPHED 60MG/TRIPROLIDI 2.5MG TABLET PO PRN (22:05)
[2022-12-05] MEDS ORDERED: NICOTINE POLACRILEX 2 MG GUM BUC PRN (22:05)
[2022-12-05] MEDS ORDERED: LOPERAMIDE HCL 2 MG CAPSULE PO PRN (22:05)
[2022-12-05] MEDS ORDERED: POLYETHYLENE GLYCOL (HEALTHYLAX) 3350 17 GM PACKET PO PRN (22:05)
[2022-12-05] MEDS ORDERED: MAGNESIUM HYDROX 2400MG/30ML ORAL SUSPENSION 30 ML CUP PO PRN (22:05)
[2022-12-05] MEDS ORDERED: MAG HYDROX/AL HYDROX/SIMETH 30 ML UNIT-DOSE CUP PO PRN (22:05)
[2022-12-05] MEDS ORDERED: hydrOXYzine PAMOATE 25 MG CAPSULE (FP) PO PRN (22:05)
[2022-12-05] MEDS ORDERED: guaiFENesin 600 MG TABLET.ER (FP) PO PRN (22:05)
[2022-12-05] MEDS ORDERED: IBUPROFEN 400 MG TABLET (FP) PO PRN (22:05)
[2022-12-05] MEDS ORDERED: BENZOCAINE/MENTHOL (CHLORASEPTIC ) LOZENGE MM PRN (22:05)
[2022-12-05] MEDS ORDERED: BENZONATATE 200 MG CAPSULE PO PRN (22:05)
[2022-12-05] MEDS ORDERED: chlordiazePOXIDE HCL 25 MG CAPSULE PO PRN (22:07)
[2022-12-05] MEDS: IBUPROFEN 600 MG TABLET (FP) PO PRN (22:47)
[2022-12-05] MEDS: chlordiazePOXIDE HCL 25 MG CAPSULE PO SCH (22:48)
[2022-12-05] MEDS: ONDANSETRON *ODT* 4 MG TABLET SL PRN (23:55)
[2022-12-06] MEDS: chlordiazePOXIDE HCL 25 MG CAPSULE PO SCH (05:26)
[2022-12-06] MEDS: PRENATAL VITAMINS W/ FOLIC ACID TABLET (FP) PO SCH (10:35)
[2022-12-06] MEDS ORDERED: LORazepam 1 MG TABLET PO PRN (10:35)
[2022-12-06] MEDS: SERTRALINE HCL 25 MG TABLET (FP) PO SCH (10:35)
[2022-12-06] MEDS: LORazepam 2 MG TABLET PO SCH ×3 (10:44→22:22)
[2022-12-06 11:33] LABS: HEMATOCRIT 44.1 % (32.4-45.2); HEMOGLOBIN 14.6 GM/dL (10.7-15.3); MCH 33.8 pg (25.7-33.7); MEAN CELL VOLUME 102.3 fl (80-96); MEAN PLT VOLUME 8.3 fl (7.5-11.1); PLATELET COUNT 329 10^3/uL (134-434); RBC 4.31 M/mm3 (3.60-5.2); RDW 12.8 % (11.6-15.6)
[2022-12-06 11:35] LABS: POTASSIUM 4.4 mmol/L (3.5-5.1)
[2022-12-06 11:51] LABS: BLOOD UREA NITROGEN 11.1 mg/dL (7-18)
[2022-12-06 11:54] LABS: CREATININE 0.8 mg/dL (0.55-1.3)
[2022-12-06 11:56] LABS: BILIRUBIN,TOTAL 0.6 mg/dL (0.2-1); TOT PROT 7.4 g/dl (6.4-8.2)
[2022-12-06] MEDS: GABAPENTIN 100 MG CAPSULE PO SCH ×2 (13:21→22:21)
[2022-12-06] MEDS ORDERED: MELATONIN 5 MG TABLETS PO SCH (22:00)
[2022-12-06] MEDS: traZODone HCL 100 MG TABLET (FP) PO SCH (22:21)
[2022-12-06] MEDS: THIAMINE HCL 100 MG TABLET (FP) PO SCH (22:21)
[2022-12-07] MEDS ORDERED: chlordiazePOXIDE HCL 25 MG CAPSULE PO SCH (05:00)
[2022-12-07] MEDS: LORazepam 2 MG TABLET PO SCH ×4 (05:40→22:39)
[2022-12-07] MEDS: GABAPENTIN 100 MG CAPSULE PO SCH ×3 (05:40→22:38)
[2022-12-07] MEDS: SERTRALINE HCL 25 MG TABLET (FP) PO SCH (09:48)
[2022-12-07] MEDS: PRENATAL VITAMINS W/ FOLIC ACID TABLET (FP) PO SCH (09:49)
[2022-12-07] MEDS: traZODone HCL 100 MG TABLET (FP) PO SCH (22:38)
[2022-12-07] MEDS: THIAMINE HCL 100 MG TABLET (FP) PO SCH (22:38)
[2022-12-08] MEDS ORDERED: chlordiazePOXIDE HCL 10 MG CAPSULE PO PRN
[2022-12-08] MEDS ORDERED: LORazepam 1 MG TABLET PO SCH (05:00)
[2022-12-08] MEDS ORDERED: chlordiazePOXIDE HCL 10 MG CAPSULE PO SCH (05:00)
[2022-12-08] MEDS: GABAPENTIN 100 MG CAPSULE PO SCH (05:30)
[2022-12-08] MEDS: ONDANSETRON *ODT* 4 MG TABLET SL PRN (05:32)
[2022-12-08] MEDS: IBUPROFEN 600 MG TABLET (FP) PO PRN (05:32)
[2022-12-08 06:16] VITALS: BP 130/87; PULSE 80; RESP 16; TEMP 98.2
[2022-12-09] MEDS ORDERED: LORazepam 0.5 MG TABLET PO PRN
[2022-12-09] MEDS ORDERED: chlordiazePOXIDE HCL 10 MG CAPSULE PO SCH (05:00)
[2022-12-09] MEDS ORDERED: LORazepam 0.5 MG TABLET PO SCH (05:00)
[2022-12-10] MEDS ORDERED: chlordiazePOXIDE HCL 10 MG CAPSULE PO ONE (05:00)
[2022-12-10] MEDS ORDERED: LORazepam 0.5 MG TABLET PO ONE (05:00)
== END 2022-12-08 09:17 | disposition left against medical advice (07) | DRG 770 ==
LOC: YASAS 20:53 → Y6N 22:07
PROVIDERS: ADMIT Allergy & Immunology; ATTEND Surgery
PROC: HZ2ZZZZ Detoxification Services for Substance Abuse Treatment (ICD-10-PCS; principal; 2022-12-05)
DX: F10.230 Alcohol dependence with withdrawal, uncomplicated (principal); F10.220 Alcohol dependence with intoxication, uncomplicated; F13.20 Sedative, hypnotic or anxiolytic dependence, uncomplicated; F14.20 Cocaine dependence, uncomplicated; F12.20 Cannabis dependence, uncomplicated; F17.210 Nicotine dependence, cigarettes, uncomplicated; F31.81 Bipolar II disorder; F19.982 Other psychoactive substance use, unspecified with psychoactive substance-induced sleep disorder; F19.980 Other psychoactive substance use, unspecified with psychoactive substance-induced anxiety disorder; I10 Essential (primary) hypertension; Z88.0 Allergy status to penicillin; Z56.0 Unemployment, unspecified
CPT/HCPCS: 36415; 80053; 85027; 86780; 87635; Q0162